=== PATIENT | female | born 1945 | race Two or more races ===

== ENCOUNTER 2022-04-29 09:02 | Emergency (ER) | payer MEDICARE, OTHER ==
[~2022-04-29] VITALS: Ht 160 cm; Wt 67.1 kg
[~2022-04-29 09:02] MED LIST: SIMV-46 PO
--- NOTE | 2022-04-29 09:11 | NUR ---
[id number], c/o R shoulder and mid back pain s/p tripped and fall 10/10 ps, denies hitting her head. On room air, breathing evenly and unlabored. Kept comfortable, will continue to monitor accordingly.
--- NOTE | 2022-04-29 09:12 | NUR ---
Dr. Santos at bedside for eval.
[2022-04-29] MEDS ORDERED: HYDROCODONE/APAP 5/325MG TABLET ONE (09:24)
[2022-04-29] MEDS ORDERED: HYDROCODONE/APAP 5/325MG TABLET PO ONE ×2 (09:30→11:30)
[2022-04-29 09:43] LABS: BASOPHILS % (AUTO) 0.4 % (0.0-2.0); EOSINOPHILS % (AUTO) 0.4 % (0.0-6.0); HEMATOCRIT 34 % (33-45); HEMOGLOBIN 11.6 g/dL (11.5-14.8); LYMPHOCYTES # (AUTO) 2.1 K/uL (0.8-4.8); MEAN CORPUSCULAR HGB CONC 34 g/dl (31.0-36.0); MEAN CORPUSCULAR VOLUME 92 fL (82-100); MONOCYTES # (AUTO) 0.5 K/uL (0.1-1.30); MONOCYTES % (AUTO) 6.2 % (2.0-12.0); NEUTROPHILS # (AUTO) 4.8 K/uL (1.8-8.9); PLATELET COUNT (AUTO) 270 K/uL (150-450); RED BLOOD CELL COUNT(AUTO) 3.74 MIL/uL (4.0-5.2); WHITE BLOOD COUNT (AUTO) 7.4 K/uL (4.3-11.0)
[2022-04-29 09:50] LABS: CALCIUM, SERUM 8.8 mg/dL (8.5-10.1); CREATININE 0.7 mg/dL (0.6-1.3); POTASSIUM 3.6 mmol/L (3.5-5.1)
--- NOTE | 2022-04-29 09:56 | NUR ---
BACK FROM CT
--- NOTE | 2022-04-29 10:30 | NUR ---
Sling applied to rt shoulder and arm by instrumentation technician. Pt had good cms and cap refil before and after application of splint. Pt placed in pos of comfort with Rt arm elevated on some blankets. Pt complaing of mild to moderate pain. States that the pain is slowly creeping back. no s/sxof distress present.
--- NOTE | 2022-04-29 11:12 | NUR ---
Dr Yip at bedside to answer pt questions and inform her of his findings.
--- NOTE | 2022-04-29 11:20 | NUR ---
pt complaining of 7/10 pain in her back and rt shoulder. Will medicate with norco and naproxen per EDMD order. Pt called friend to come pick her up. Waiting on DC instructions and pts ride to get her. Will be preparing pt for DC home via friend.;
[2022-04-29] MEDS ORDERED: NAPROXEN 250 MG TABLET PO ONE (11:30)
--- NOTE | 2022-04-29 12:02 | NUR ---
EDMD discovered that spine xrays were never done, only the neck and shoulder were imaged. Pt will have to wait to go back to xr and get the images of her spine before Dr. Mathew can DC her. Pt was perterbed at the mistake, but is patient;y awaiting XR transport. EDMD said that he will not wait for radiologist report and can dc her home and call her if the radiology report does not concur with his.
--- NOTE | 2022-04-29 12:12 | NUR ---
gave pt cup of water, pulled her up in bed, placed in pos of comfort, all needs met, gurclarence dropped, rails up, call light with pt. Pt resting comfortably, no s/sxof distress present.
--- NOTE | 2022-04-29 13:00 | NUR ---
Patient discharged to home in stable condition. Written and verbal after care instructions given. Patient verbalizes understanding of instruction.
[2022-04-29] MEDS ORDERED: OXYC5TAB3 PO (13:07)
[2022-04-29] MEDS ORDERED: NAPR-1192 PO (13:07)
[2022-04-29 14:59] VITALS: BP 121/80
== END 2022-04-29 14:59 | disposition home or self-care (01) ==
LOC: ER 09:13
DX: S42.351A Displaced comminuted fracture of shaft of humerus, right arm, initial encounter for closed fracture (principal); S32.010A Wedge compression fracture of first lumbar vertebra, initial encounter for closed fracture; S22.089A Unspecified fracture of T11-T12 vertebra, initial encounter for closed fracture; M54.2 Cervicalgia; I10 Essential (primary) hypertension; E78.00 Pure hypercholesterolemia, unspecified; Z79.899 Other long term (current) drug therapy
CPT/HCPCS: 36415; 70450-TC; 71045-TC; 72125-TC; 72131-TC; 73030-TC; 80048-TC; 85025-TC; 85730-TC